=== PATIENT | female | born 1975 | race Caucasian/White ===

== ENCOUNTER 2025-04-25 15:52 | Outpatient (CLI) | payer BC, MEDICAID | END 2025-04-25 17:00 | disposition home or self-care (01) | LOC: LAB 15:52 | PROVIDERS: ATTEND Family Medicine | DX: L29.9 Pruritus, unspecified (principal); Z00.00 Encounter for general adult medical examination without abnormal findings; Z71.3 Dietary counseling and surveillance | CPT/HCPCS: 82270 ==